=== PATIENT | male | born 1965 | race Caucasian/White ===

== ENCOUNTER → 2024-03-09 15:43 | Outpatient (REF) | payer OTHER, SELFPAY ==
[2024-03-09 17:01] LABS: Blood Urea Nitrogen 16 mg/dl (9-20); Calcium 9.6 mg/dl (8.4-10.2); Carbon Dioxide 29 mmol/L (22-30); Chloride 101 mmol/L (98-107); Glucose 151 mg/dl (70-99); Potassium 3.6 mmol/L (3.5-5.1); Sodium 138 mmol/L (135-145); eGFR > 60.00
== END ==
LOC: RAD 15:43
PROVIDERS: ATTENDING PHYSICIAN Orthopaedic Surgery Hand Surgery; FAMILY PHYSICIAN Physician Assistant
DX: Z01.818 Encounter for other preprocedural examination (principal)
CPT/HCPCS: 36415; 80048; 93005

== ENCOUNTER 2024-03-20 06:46 | Day surgery (SDC) | payer OTHER, SELFPAY ==
--- NOTE | 2024-03-13 13:12 | PTCARENOTE ---
Patients 03/09 ECG Abnormal- reviewed by Dr. Galvin- no additional interventions required
[2024-03-20] VITALS (13 sets, daily range): BP systolic 126–152; BP diastolic 68–95; BMI 29.1
[2024-03-20] MEDS: CELEBREX 200 MG PO (11:44)
[2024-03-20] MEDS: TYLENOL 1000 MG PO (11:44)
[2024-03-20] MEDS: NORMOSOL-R 1000 IV (11:45)
== END 2024-03-20 18:35 | disposition home or self-care (01) ==
LOC: SDS 06:46
PROVIDERS: ATTENDING PHYSICIAN Orthopaedic Surgery Hand Surgery
DX: S46.011A Strain of muscle(s) and tendon(s) of the rotator cuff of right shoulder, initial encounter (principal); S46.111A Strain of muscle, fascia and tendon of long head of biceps, right arm, initial encounter; M75.41 Impingement syndrome of right shoulder; X58.XXXA Exposure to other specified factors, initial encounter; M75.51 Bursitis of right shoulder
CPT/HCPCS: 23430; 29827; 29826; C1713

== ENCOUNTER 2024-10-13 15:18 | Emergency (ER) | payer OTHER, SELFPAY ==
[2024-10-13 15:21] VITALS: BP 164/92
--- NOTE | 2024-10-13 16:16 | ED.GENMED ---
History of Present Illness
<Lynn Yoder PA-C - Last Filed: 10/13/24 21:34>
General
Chief Complaint: Anal/Rectal Problem
Source: patient
Exam Limitations: none
Time Seen by Provider: 10/13/24 16:15
Nursing documentation reviewed up to this point in time: agreed with
History of Present Illness
History of Present Illness:
59-year-old male with past medical history of hypertension, GERD, migraines, presents emergency department today with concerns of painful external hemorrhoid. Patient states that he has had this hemorrhoid for the past 1 to 2 weeks but states that
it started to become painful around 2 days ago. Patient states that he has tried preparation H cream without relief. He also notes some bleeding as well. He has never had this happen before. He currently does not follow with a support services manager
or a general surgeon. He denies any fevers or chills, abdominal pain, nausea or vomiting.
Past History
<Lynn Yoder PA-C - Last Filed: 10/13/24 21:34>
Past History
ED Past Medical History: HTN
ED Past Surgical History: Orthopedic
Social History
Tobacco: Non-smoker
Alcohol: Occasional
Drug: None
Living: with family
Employment: Employed
Review of Systems
<Lynn Yoder PA-C - Last Filed: 10/13/24 21:34>
Review of Systems
All Other Systems: ROS reviewed and negative except as documented in HPI and ROS
Phy Exam
<Lynn Yoder PA-C - Last Filed: 10/13/24 21:34>
Physical Exam
Physical Exam:
General: Patient is well appearing and in no acute distress; non-toxic
Skin: Warm and dry, no rashes or lesions
Head: Normocephalic, atraumatic
Eyes: Sclera non-icteric. EOMs intact.
Cardiac: Regular rate and rhythm, no murmurs
Pulm: Normal respiratory effort, no wheezes, rales, or rhonchi
Genitourinary: Large external thrombosed hemorrhoid noted.
Neuro: CN II-XII intact, no focal neurologic deficits.
Psychiatric: Appropriate mood and affect.
Course
<Lynn Yoder PA-C - Last Filed: 10/13/24 21:34>
Vital Signs
Initial and Last Documented VS:
Initial Vital Signs
Temp Pulse Resp BP Pulse Ox
98.0 F 77 18 164/92 96
10/13/24 15:21 10/13/24 15:21 10/13/24 15:21 10/13/24 15:21 10/13/24 15:21
Last Documented Vital Signs
Temp Pulse Resp BP Pulse Ox
98.0 F 77 18 164/92 96
10/13/24 15:21 10/13/24 15:21 10/13/24 15:21 10/13/24 15:21 10/13/24 15:21
<Krista Gallegos DO - Last Filed: 10/13/24 17:48>
Vital Signs
Initial and Last Documented VS:
Initial Vital Signs
Temp Pulse Resp BP Pulse Ox
98.0 F 77 18 164/92 96
10/13/24 15:21 10/13/24 15:21 10/13/24 15:21 10/13/24 15:21 10/13/24 15:21
Last Documented Vital Signs
Temp Pulse Resp BP Pulse Ox
98.0 F 77 18 164/92 96
10/13/24 15:21 10/13/24 15:21 10/13/24 15:21 10/13/24 15:21 10/13/24 15:21
Procedures
<Lynn Yoder PA-C - Last Filed: 10/13/24 21:34>
Other
Indication for procedure:: Painful thrombosed hemorrhoid
Procedure completed by: Krista Giron PA-C, DO
Consent form signed: No
If no, reason: Emergency procedure (verbal consent obtained, risks including bleeding discussed)
Additional Procedure:
External hemorrhoid numbed with 1% lidocaine with epinephrine. Incision with 11 blade made and thrombosis removed successfully removed. Dressing applied. Patient tolerated the procedure well.
<Lynn Yoder PA-C - Last Filed: 10/13/24 21:34>
MDM/Problems Addressed
Differential Diagnosis Includes:
thrombosed hemorrhoid, condyloma, anal fissure, perirectal abscess
MDM/Problems Addressed:
59 y/o male presents to the ER with thrombosed hemorrhoid. Preparation H cream not helping. Patient states that he is in so much pain and he is concerned that he will not be able to see general surgery in follow up in a timely manner. Thrombosis
removed, hemorrhoid incised. Pt given home wound care instructions and general surgery follow up. Pt stable for discharge.
<Lynn Yoder PA-C - Last Filed: 10/13/24 21:34>
*Pulse Oximetry
Patient hypoxic: no
*Critical Care Note
Total Time (30-74mins, 75-104mins- exclusive of procedures): Not Applicable
Data Reviewed
Review of Other/Old Records Reveals: Records (reviewed ER documentation from 04/16/23)
ED Attending Note
<Lynn Yoder PA-C - Last Filed: 10/13/24 21:34>
-
Portions of this chart may have been created with voice recognition software.� Occasional wrong word or��sound alike� substitutions may have occurred due to the inherent limitations of voice recognition software.
<Krista Gallegos DO - Last Filed: 10/13/24 17:48>
ED Attending Note
Patient seen and examined by attending physician: Yes
I performed the substantive portion of visit, reviewed & personally made and approve the management plan that is documented in note by myself or DANIEL.: Yes
I performed a history and physical exam of patient and discussed management with resident, I reviewed resident's note and agree with documented findings and plan of care.: Yes
ED Attending Note:
59-year-old male presenting to the emergency department for external hemorrhoid and pain. Patient reports symptoms started few days ago. Has tried OTC medications without symptom relief. Does report some scant bleeding. Denies any blood in his
stool. Vital signs are significant for mild hypertension.
On exam patient is well-appearing, no acute distress or discomfort. Examination is consistent with a thrombosed hemorrhoid. I was present during procedure by physician salon assistant, status post incision of hemorrhoid with evacuation of clot.
Well-tolerated by patient. Feel stable for discharge. Wound was appropriately dressed. Will provide outpatient surgery follow-up. Return precautions discussed
Discharge Plan
Departure
Patient Disposition: Home (Routine Discharge)
Date of Disposition: 10/13/24
Time of Disposition: 17:53
Patient with high blood pressure during this ER visit?: Yes
Condition: Good
Discharge Problem:
Thrombosed external hemorrhoid
Instructions: Hemorrhoids (DC), How to Do a Sitz Bath
Prescriptions:
No Action
hydrochlorothiazide 25 mg Tablet
25 mg PO DAILY
Tums 300 mg (750 mg) Tablet,Chewable
1 tab PO PRN PRN (Reason: indigestion)
melatonin 3 mg Tablet
3 - 5 mg PO HS PRN (Reason: sleep)
propranolol 10 mg Tablet
10 mg PO PRN PRN (Reason: migraine)
Acidophilus Tablet,Chewable
1 tab PO DAILY
Vitamin B-2
1 tab PO DAILY
valerian root
220 mg PO PRN PRN (Reason: sleep)
Referrals:
Chino Thurston MD [Active] - Call in 1-3 days for appt
Activity Restrictions/Additional Instructions:
Please call the attached number to schedule appointment for follow-up with general surgery in the coming weeks.
Please keep the area clean. I recommend doing sitz bath's. Please change dressing at least once daily and as needed for bleeding. You can take Tylenol and Motrin for pain.
PLEASE RETURN EMERGENCY DEPARTMENT IF YOU DEVELOP SIGNS OF INFECTION SUCH FEVERS OR CHILLS, PURULENT DRAINAGE FROM THE WOUND, SURROUNDING REDNESS TO THE WOUND, NAUSEA OR VOMITING, OR ANY OTHER SIGNS OR SYMPTOMS WORRISOME TO YOU.
Interventions
Interventions:
*Risk Screen - Suicide Last Done: 10/13/24 15:21
*General Assessment Last Done: 10/13/24 18:08
*Neglect/Abuse Screening Last Done: 10/13/24 15:21
*ED- Fall Risk Assessment Last Done: 10/13/24 18:08
*ED COVID-19 Vaccine History Last Done: 10/13/24 15:21
*Nursing Disposition Last Done: 10/13/24 18:08
EZ-Wgixoo-Lvlfhrdfbn Assessment Last Done: 10/13/24 18:09
ED-Skin Assessment Last Done: 10/13/24 16:36
Discharge Date and Time
Discharge Date/Time: 10/13/24 18:10
Print Language: LITHUANIAN
== END 2024-10-13 18:10 | disposition home or self-care (01) ==
LOC: EMR 15:18
PROVIDERS: EMERGENCY PHYSICIAN Student in an Organized Health Care Education/Training Program; FAMILY PHYSICIAN Physician Assistant
DX: K64.5 Perianal venous thrombosis (principal); I10 Essential (primary) hypertension; K21.9 Gastro-esophageal reflux disease without esophagitis; Z87.19 Personal history of other diseases of the digestive system
CPT/HCPCS: 99282